=== PATIENT | male | born 1965 | race Caucasian/White ===

== ENCOUNTER 2024-11-07 08:56 | Outpatient (REF) | payer BC, SELFPAY ==
[2024-11-07 14:29] LABS: HCT 43.9 % (40.0-50.0); HGB 14.8 g/dL (13.5-17.5); MCH 31.2 pg (27.0-33.0); MCHC 33.7 % (32.0-36.0); MCV 92 fL (80-95); MPV 11.3 fL (8.0-11.0); Platelet Count 221 10^3/uL (130-400); RBC 4.75 10^6/uL (4.36-5.78); RDW 12.4 % (11.8-14.1); RDW-SD 42.5 fL; WBC 4.52 10^3/uL (4.4-10.8)
[2024-11-07 15:28] LABS: ALT 46 U/L (16-63); AST 34 U/L (15-37); Albumin 4.1 g/dL (3.4-5.0); Alkaline Phosphatase 67 U/L (46-116); BUN 22 mg/dL (7-18); Bilirubin, Total 0.54 mg/dL (0.2-1.0); CREATININE 1.2 mg/dL (0.70-1.30); Calcium 9.3 mg/dL (8.5-10.1); Calculated LDL 148 mg/dL (<100); Chloride 107 mmol/L (98-107); Cholesterol 228 mg/dL (<200); Estimated GFR 69.66 (mL/min/1.73m2); Glucose 81 mg/dL (74-106); HDL Cholesterol 64 mg/dL (40-60); Potassium 4.2 mmol/L (3.5-5.1); Sodium 143 mmol/L (136-145); TSH 13.67 uIU/mL (0.36-3.74); Total Protein 7.2 g/dL (6.4-8.2); Triglyceride 80 mg/dL (<150)
[2024-11-07 16:36] LABS: FREE T4 0.71 ng/dL (0.76-1.46)
== END 2024-11-07 08:57 | disposition home or self-care (01) ==
LOC: NCHCN 08:56
PROVIDERS: PCP Family Medicine; Visit Provider Family Medicine
DX: Z13.220 Encounter for screening for lipoid disorders (principal); Z83.49 Family history of other endocrine, nutritional and metabolic diseases
CPT/HCPCS: 80053; 80061; 85027; 84439; 84443

== ENCOUNTER 2025-01-09 13:00 | Outpatient (REF) | payer BC, SELFPAY ==
--- OUTSIDE RECORDS SUMMARY | 2025-01-09 13:02 | XMS_ITS ---
Author Organization Unknown Address [address] [place] [address] [phone] Phone Care Team Providers Care Community Resource Officer Name Role Phone LOS MCKEON MD Attending Unavailable [facility] Colle ct Date/Time: 06/27/2021 11:00 [facility] ID: [id number] [address] [place] [address], [id number] LOINC: 09224-3 Test Value Unit Reference Range Code Code System Flag SOURCE= Anterior nasal Tier- TRAVEL SARS COV2 RNA: NEGATIVE REFERENCE RAN GE: NEGAT 45942-5 LOINC Social History Type Status Start Date End Date Code Code Syst em Smoking History Never smoker (Never Smoked) [id number] SNOMED CT Sex Male Hospital Discharge Instructions Should you have any questions prior to discharge, please contact a member of your healthcare team. If you have left the hospital and have any questions, please contact your primary care physician. Reason For Referral No Data Found Plan of Treatment Travel 06/27/2021 Travel 01/16/2021 Encounters Encounter Diagnosis Start Date Code Code Sys tem Exposure to SARS-CoV-2 06/27/2021 [id number] SNOME D-CT Personal Care Team Section Performer Name Performer Role Active Date Inactive Da te
[2025-01-09 14:42] LABS: Calculated LDL 153 mg/dL (<100); Cholesterol 244 mg/dL (<200); HDL Cholesterol 70 mg/dL (40-60); Triglyceride 107 mg/dL (<150)
[2025-01-09 15:01] LABS: FREE T4 0.92 ng/dL (0.76-1.46)
== END 2025-01-09 13:01 | disposition home or self-care (01) ==
LOC: NCHCN 13:00
PROVIDERS: PCP Family Medicine; Visit Provider Family Medicine
DX: E78.5 Hyperlipidemia, unspecified (principal); E03.9 Hypothyroidism, unspecified
CPT/HCPCS: 80061; 84439; 84443

== ENCOUNTER 2025-03-15 08:20 | Outpatient (REF) | payer BC, SELFPAY ==
[2025-03-15 21:58] LABS: ALT 73 U/L (16-63); AST 41 U/L (15-37); Alkaline Phosphatase 68 U/L (46-116); Anion Gap 7.4 mmol/L (3-11); BUN 20 mg/dL (7-18); Bilirubin, Total 0.6 mg/dL (0.2-1.0); CO2 29.6 mmol/L (21.0-32.0); CREATININE 1.2 mg/dL (0.70-1.30); Calcium 9.6 mg/dL (8.5-10.1); Calculated LDL 77 mg/dL (<100); Chloride 109 mmol/L (98-107); Cholesterol 148 mg/dL (<200); Estimated GFR 69.66 (mL/min/1.73m2); Glucose 95 mg/dL (74-106); HDL Cholesterol 62 mg/dL (>or=40); Potassium 4.9 mmol/L (3.5-5.1); Sodium 146 mmol/L (136-145); TSH (W/Ref FT4) 4.83 uIU/mL (0.36-3.74); Total Protein 6.9 g/dL (6.4-8.2); Triglyceride 46 mg/dL (<150)
[2025-03-15 22:30] LABS: FREE T4 0.91 ng/dL (0.76-1.46)
== END 2025-03-15 08:21 | disposition home or self-care (01) ==
LOC: NCHCN 08:20
PROVIDERS: PCP Family Medicine; Visit Provider Family Medicine
DX: E78.5 Hyperlipidemia, unspecified (principal); E03.9 Hypothyroidism, unspecified
CPT/HCPCS: 80053; 80061; 84439; 84443

== ENCOUNTER 2025-05-21 18:22 | Outpatient (REF) | payer BC, SELFPAY ==
[2025-05-21 16:12] LABS: ALT 60 U/L (16-63); AST 33 U/L (15-37); Albumin 4.2 g/dL (3.4-5.0); Alkaline Phosphatase 81 U/L (46-116); Anion Gap 0.6 mmol/L (3-11); BUN 20 mg/dL (7-18); Bilirubin, Total 0.5 mg/dL (0.2-1.0); CO2 34.4 mmol/L (21.0-32.0); CREATININE 1.1 mg/dL (0.70-1.30); Calcium 9.3 mg/dL (8.5-10.1); Calculated LDL 104 mg/dL (<100); Chloride 105 mmol/L (98-107); Cholesterol 179 mg/dL (<200); Estimated GFR 77.33 (mL/min/1.73m2); Glucose 98 mg/dL (74-106); HDL Cholesterol 54 mg/dL (>or=40); Potassium 4.6 mmol/L (3.5-5.1); Sodium 140 mmol/L (136-145); TSH (W/Ref FT4) 5.91 uIU/mL (0.36-3.74); Total Protein 6.9 g/dL (6.4-8.2); Triglyceride 106 mg/dL (<150)
[2025-05-21 17:20] LABS: FREE T4 0.84 ng/dL (0.76-1.46)
== END 2025-05-21 18:23 | disposition home or self-care (01) ==
LOC: NCHCN 18:22
PROVIDERS: PCP Family Medicine; Visit Provider Family Medicine
DX: E78.5 Hyperlipidemia, unspecified (principal); E03.9 Hypothyroidism, unspecified
CPT/HCPCS: 80053; 80061; 84439; 84443

== ENCOUNTER 2025-08-27 16:41 | Outpatient (REF) | payer BC, SELFPAY ==
[2025-08-27 17:38] LABS: ALT 55 U/L (16-63); AST 35 U/L (15-37); Albumin 3.9 g/dL (3.4-5.0); Alkaline Phosphatase 67 U/L (46-116); Anion Gap 7.3 mmol/L (3-11); BUN 17 mg/dL (7-18); Bilirubin, Total 0.6 mg/dL (0.2-1.0); CO2 28.7 mmol/L (21.0-32.0); Calcium 9.2 mg/dL (8.5-10.1); Calculated LDL 92 mg/dL (<100); Chloride 107 mmol/L (98-107); Cholesterol 162 mg/dL (<200); Estimated GFR 76.85 (mL/min/1.73m2); Glucose 94 mg/dL (74-106); HDL Cholesterol 54 mg/dL (>or=40); Potassium 4.6 mmol/L (3.5-5.1); Sodium 143 mmol/L (136-145); TSH (W/Ref FT4) 5.03 uIU/mL (0.36-3.74); Total Protein 6.9 g/dL (6.4-8.2); Triglyceride 83 mg/dL (<150)
[2025-08-28 18:35] LABS: PSA, Screening 5.2 ng/mL (<=4.5)
== END 2025-08-27 16:42 | disposition home or self-care (01) ==
LOC: NCHCN 16:41
PROVIDERS: PCP Family Medicine; Visit Provider Family Medicine
DX: E78.5 Hyperlipidemia, unspecified (principal); E03.9 Hypothyroidism, unspecified; Z12.5 Encounter for screening for malignant neoplasm of prostate
CPT/HCPCS: 80053; 80061; 84153; 84439; 84443

== ENCOUNTER 2025-11-02 16:40 | Outpatient (REF) | payer BC, SELFPAY ==
[2025-11-02 19:10] LABS: TSH (W/Ref FT4) 1.94 uIU/mL (0.55-4.78)
== END 2025-11-02 16:41 | disposition home or self-care (01) ==
LOC: NCHCN 16:40
PROVIDERS: PCP Family Medicine; Visit Provider Family Medicine
DX: E03.9 Hypothyroidism, unspecified (principal); R97.20 Elevated prostate specific antigen [PSA]
CPT/HCPCS: 84154; 84443